=== PATIENT | male | born 1955 | race Caucasian/White ===

== ENCOUNTER 2024-01-18 14:53 | Outpatient (AMB) | payer BC, SELFPAY ==
--- NOTE | 2024-01-18 14:56 | MHC.OFFVIS ---
Vital Signs 01/18/24 14:59 Height 5 ft 9 in Weight 217 lb 13.067 oz BMI 32.2 BP 126/72 Blood Pressure Location Rt brachial Position Sitting Pulse 76 Pulse Source Pulse Oximeter Intake Visit Reasons: Pre DM-CONFIRMED Intake Note: Patient presents today for Pre Diabetes, last A1c was on 12/15/2023 resulting 6.0%. Referred by PCP. Glucose 85 mg/dl. Joint Terminal Attack Controller Required: No Accompanied by: Self / Same As Patient Allergies No Known Allergies Allergy (Verified 01/18/24 15:00) Medication List - Last Reconciled 01/18/24 by Madison Inman PA-C amlodipine 10 mg PO DAILY cholecalciferol (vitamin D3) 25 mcg PO DAILY HPI HPI Pre DM-CONFIRMED: Details: Patient is a 68-year-old male who presents today to establish care with endocrinology for prediabetes. He has a significant past medical history hypertension, hyperlipidemia , obesity and recent diagnosis of prediabetes. Endo: In December had his labs checked and his A1c was 6. Having prediabetes has been stressful so he has increased his exercise (walking 6 miles a day), cut out carbs. Reports losing 15 lbs and is motivated to not develop DM. CV: Denies any known history of CAD. Blood pressure in the office is 126/72. He is currently on amlodipine. Cholesterol is controlled with diet. [facility] Medical History (Updated 01/18/24 @ 15:14 by Madison Inman PA-C) Class 1 obesity with serious comorbidity and body mass index (BMI) of 32.0 to 32.9 in adult Hyperlipidemia HTN (hypertension), benign Prediabetes Surgical History (Updated 01/18/24 @ 15:01 by ANDRES Miller) Hx of appendectomy Family History Mother No known health problems Father Congestive heart failure Social History Alcohol intake: current Patient Tobacco Use Status: Never used Tobacco Physical Exam Vital Signs: BMI result Body Mass Index 32.2 Const Orientation/consciousness: patient oriented x3 Neck Neck: Yes no lymphadenopathy Thyroid: Thyroid normal Carotids: no bruits Resp Auscultation: clear to auscultation bilaterally Cardio Rate: regular rate Rhythm: regular rhythm Heart sounds: S1 normal heart sound present and S2 normal heart sound present Peripheral pulses: dorsalis pedis present Neuro General: patient oriented x3, gait normal and no focal motor deficits Extrem Other: Monofilament sensation intact bilaterally. Vibratory sensation intact bilaterally. Skin intact. General: Yes normal to inspection Results Reviewed Results Reviewed: CMP from 12/06/2023 WNL Lipids from 12/06/2023: Triglycerides 138, total cholesterol 183, HDL 54, VLDL 24, LDL 105 Assessment & Plan Assessment & Plan (1) Prediabetes: Code(s): R73.03 - Prediabetes Category: Medical Plan: a1c is 6.0. Declines further diabetic education today. Will follow up in 3 months. (2) HTN (hypertension), benign: Code(s): I10 - Essential (primary) hypertension Category: Medical Plan: bp wnl. continue norvasc. (3) Class 1 obesity with serious comorbidity and body mass index (BMI) of 32.0 to 32.9 in adult: Code(s): E66.9 - Obesity, unspecified; Z68.32 - Body mass index [BMI] 32.0-32.9, adult Category: Medical Qualifiers: Obesity type: due to excess calories Qualified Code(s): E66.09 - Other obesity due to excess calories; Z68.32 - Body mass index [BMI] 32.0-32.9, adult Plan: has a goal to be 195 lbs. He is going to increase exercise, reduce carbs and etoh. Orders: Orders Comprehensive [place]. Panel Fast Today E66.09 - Other obesity due to excess calories, I10 - Essential (primary) hypertension, R73.03 - Prediabetes, Z68.32 - Body mass index [BMI] 32.0-32.9, adult Hemoglobin A1c Today E66.09 - Other obesity due to excess calories, I10 - Essential (primary) hypertension, R73.03 - Prediabetes, Z68.32 - Body mass index [BMI] 32.0-32.9, adult Coding Level of Care Code New Pt Level 4 (04555) Diagnoses Prediabetes R73.03 HTN (hypertension), benign I10 Class 1 obesity due to excess calories with serious comorbidity and body mass index (BMI) of 32.0 to 32.9 in adult E66.09; Z68.32 Obesity type: due to excess calories
[2024-01-18 14:59] VITALS: BP 126/72; PULSE 76; BMI 32.2
[2024-01-18 15:15] LABS: Glucose, Whole Blood 85 mg/dL (60-115)
== END 2024-01-18 15:45 | disposition home or self-care (01) ==
PROVIDERS: PCP Internal Medicine; Visit Provider Physician Assistant
DX: R73.03 Prediabetes (principal); I10 Essential (primary) hypertension; E66.09 Other obesity due to excess calories; Z68.32 Body mass index [BMI] 32.0-32.9, adult
CPT/HCPCS: 99204

== ENCOUNTER → 2024-01-18 14:53 | Outpatient (BNVA) | payer BC, SELFPAY | PROVIDERS: PCP Internal Medicine; Visit Provider Physician Assistant | DX: R73.03 Prediabetes (principal); I10 Essential (primary) hypertension; E66.09 Other obesity due to excess calories; Z68.32 Body mass index [BMI] 32.0-32.9, adult; Z79.899 Other long term (current) drug therapy | CPT/HCPCS: 82947 ==

== ENCOUNTER 2024-04-15 07:32 | Outpatient (REF) | payer BC, SELFPAY ==
[2024-04-15 08:05] LABS: Estimated Average Glucose 105 mg/dL; Hemoglobin A1c % 5.3 % (<6.0)
[2024-04-15 08:16] LABS: Alanine Aminotransferase 16 U/L (0-40); Albumin Level 4.3 g/dL (3.5-5.0); Alkaline Phosphatase 85 U/L (39-117); Anion Gap 12 (12-20); Aspartate Amino Transferase 19 U/L (5-37); Bilirubin Total 0.7 mg/dL (0.0-1.0); Blood Urea Nitrogen 18 mg/dL (9-16); Calcium 9.8 mg/dL (8.4-10.2); Carbon Dioxide 27 mmol/L (22-29); Chloride 106 mmol/L (96-108); Estimated Glomerular Filt Rate > 60; Glucose Fasting 104 mg/dL (60-99); Potassium 4.6 mmol/L (3.3-5.1); Sodium 140 mmol/L (135-145); Total Protein 7.3 g/dL (6.5-8.0)
== END 2024-04-15 07:33 | disposition home or self-care (01) ==
LOC: HO.LAB 07:32
PROVIDERS: PCP Internal Medicine; Visit Provider Physician Assistant
DX: I10 Essential (primary) hypertension (principal); R73.03 Prediabetes; E66.09 Other obesity due to excess calories; Z68.32 Body mass index [BMI] 32.0-32.9, adult
CPT/HCPCS: 36415; 80053; 83036

== ENCOUNTER 2024-04-21 09:42 | Outpatient (AMB) | payer BC, SELFPAY ==
--- NOTE | 2024-04-21 09:56 | A.OFFVIS_ITS ---
Vital Signs 04/21/24 10:00 Height 5 ft 9 in Weight 202 lb 13.204 oz BMI 29.9 BP 122/78 Blood Pressure Location Rt brachial Position Sitting Pulse 60 Pulse Source Pulse Oximeter Intake Visit Reasons: Pre DM/LVM Intake Note: Patient presents today for D2OK follow up visit. Last Diabetic Eye exam: a year ago Last Podiatry Visit: Does not see a Supervisor In [employer] Testing Most recent HgA1c: 5.3%, 04/15/2024 Random Glucose: 100 mg/dL, Today Supervisor Coal Handling Required: No Accompanied by: Self / Same As Patient Allergies No Known Allergies Allergy (Verified 01/18/24 15:00) Medication List - Last Reconciled 04/21/24 by Madison Inman PA-C amlodipine 2.5 mg PO DAILY cholecalciferol (vitamin D3) 25 mcg PO DAILY HPI HPI Pre DM/LVM: Details: Patient is a 68-year-old male who presents today for a follow up for prediabetes. He has a significant past medical history hypertension, hyperlipidemia , obesity and recent diagnosis of prediabetes. Endo: In December had his labs checked and his A1c was 6. His A1c now is 5.3. He has increased his exercise (walking 6 miles a day), cut out carbs. Reports losing 20 lbs and is motivated to not develop DM. CV: Denies any known history of CAD. Blood pressure in the office is 122/72. He is currently on amlodipine 2.5mg. Cholesterol is controlled with diet. [facility] Medical History (Updated 04/21/24 @ 10:21 by Madison Inman PA-C) Class 1 obesity with serious comorbidity and body mass index (BMI) of 32.0 to 32.9 in adult Hyperlipidemia HTN (hypertension), benign Prediabetes Surgical History Hx of appendectomy Family History Mother No known health problems Father Congestive heart failure Social History Alcohol intake: current Patient Tobacco Use Status: Never used Tobacco Physical Exam Vital Signs: Last Vital Signs Pulse 60 04/21/24 10:00 BP 122/78 04/21/24 10:00 BMI result Body Mass Index 29.9 Const Orientation/consciousness: patient oriented x3 Neck Neck: Yes no lymphadenopathy Thyroid: Thyroid normal Carotids: no bruits Resp Auscultation: clear to auscultation bilaterally Cardio Rate: regular rate Rhythm: regular rhythm Heart sounds: S1 normal heart sound present and S2 normal heart sound present Peripheral pulses: dorsalis pedis present Neuro General: patient oriented x3, gait normal and no focal motor deficits Extrem Other: Monofilament sensation intact bilaterally. Vibratory sensation intact bi laterally. Skin intact. General: Yes normal to inspection Results Reviewed Results Reviewed: Laboratory Tests 04/15/24 07:45 Sodium 140 Potassium 4.6 Chloride 106 Carbon Dioxide 27 Anion Gap 12 BUN 18 H Creatinine 1.02 Estimated GFR > 60 Fasting Glucose 104 H Estimat Average Glucose 105 Hemoglobin A1c % 5.3 Assessment & Plan Assessment & Plan (1) HTN (hypertension), benign: Code(s): I10 - Essential (primary) hypertension Category: Medical Plan: WNL. Continue current regimen (2) Impaired fasting glucose: Code(s): R73.01 - Impaired fasting glucose Category: Medical Plan: A1c normal. Advised patient that he does not need to follow with endocrinology now and can be monitored by PCP. Congratulated him on his weight loss and lifestyle modifications. Advised to follow up should he develop diabetes. Patient understands and agrees with this plan. Coding Level of Care Code Est Pt Level 4 (46630) Diagnoses HTN (hypertension), benign I10 Impaired fasting glucose R73.01
[2024-04-21 10:00] VITALS: BP 122/78; PULSE 60; BMI 29.9
[2024-04-21 10:08] LABS: Glucose, Whole Blood 100 mg/dL (60-115)
== END 2024-04-21 10:20 | disposition home or self-care (01) ==
PROVIDERS: PCP Internal Medicine; Visit Provider Physician Assistant
DX: I10 Essential (primary) hypertension (principal); R73.01 Impaired fasting glucose
CPT/HCPCS: 99214

== ENCOUNTER → 2024-04-21 09:42 | Outpatient (BNVA) | payer BC, SELFPAY | PROVIDERS: PCP Internal Medicine; Visit Provider Physician Assistant | DX: R73.01 Impaired fasting glucose (principal); I10 Essential (primary) hypertension; Z79.899 Other long term (current) drug therapy | CPT/HCPCS: 82947 ==

== ENCOUNTER 2025-07-27 07:44 | Outpatient (AMB) | payer MEDICARE, BC, SELFPAY ==
--- OUTSIDE RECORDS SUMMARY | 2025-07-27 07:47 | XMS_ITS | Clinical Summary ---
Author Organization [facility] Address [address] [place] [address] Care Team Providers Care Manager Mechanical Name Role Phone Dameon Helm MD Primary Care Provider [phone] Medical History Medical History Date Comments Anxiety DX:Anxiety Family History Medical History Relation Name Comments Hypertension Brother Heart failure Father Prostate cancer Father Heart failure Mother at 93 Abdominal Aortic Anuerysm (AAA) Neg Hx Breast cancer Neg Hx Colon cancer Neg Hx Colon polyps Neg Hx Melanoma Neg Hx Relation Name Status Comments Brother Father Mother Social History Tobacco Use Types Packs/Day Years Used Date Smoking Tobacco: Never Smokeless Tobacco: Never Alcohol Use Standard Drinks/Week Comments Yes 0 (1 standard drink = 0.6 oz pur e alcohol) Sex and Gender Information Value Date Recorded Sex Assigned at Not on file Legal Sex Male 7:19 AM EST Gender Identity Not on file Sexual Orientation Not on file Last Filed Vital Signs Vital Sign Reading Time Taken Comments Blood Pressure 138/86 10/30/2022 12:03 PM EDT Pulse 74 10/30/2022 9:47 AM EDT Temperature - - Respiratory Rate - - Oxygen Saturation - - Inhaled Oxygen Concentration - - Weight 103 kg (228 lb) 10/30/2022 9:47 AM EDT Height - - Body Mass Index - - Plan of Treatment Health Maintenance Due Date Last Done Comments Colorectal Cancer Screening: Colonoscopy 1955 DTaP,Tdap,and Td Vaccines (1 - Tdap) 12/19/1974 Pneumococcal Vaccine: 50+ Ye ars (1 of 1 - PCV) 12/19/2005 Zoster Vaccines (1 of 2) 12/19/2005 Abdominal Aortic Aneurysm (A AA) Screen 07/09/2022 Cholesterol Screening (Lipid Panel) 07/09/2022 Falls Risk Assessment 07/09/2022 Hepatitis C Screening 07/09/2022 Social Influencers of Health Screening 07/09/2022 Hypertension/CHF/CAD Annual BMP Blood Test 07/16/2022 Depression Screening 08/06/2024 COVID-19 Vaccine (1 - 2024-2 6 season) 2025 Influenza Vaccine (#1) 2025 RSV Immunization Adult Patie nts (1 - 1-dose 75+ series) 12/19/2030 HIB Vaccines Aged Out No longer eligi ble based on patient's age to complete this topic HPV Vaccines Aged Out No longer eligi ble based on patient's age to complete this topic Hepatitis A Vaccines Aged Out No long er eligible based on patient's age to complete this topic Hepatitis B Vaccines Aged Out No long er eligible based on patient's age to complete this topic IPV Vaccines Aged Out No longer eligi ble based on patient's age to complete this topic MMR Vaccines Aged Out No longer eligi ble based on patient's age to complete this topic Meningococcal ACWY Vaccine Aged Out N o longer eligible based on patient's age to complete this topic Meningococcal B Vaccine Aged Out No l onger eligible based on patient's age to complete this topic RSV Immunization Patients Un chandana 20 months Aged Out No longer eligible b ased on patient's age to complete this topic Varicella Vaccines Aged Out No longer eligible based on patient's age to complete this topic Care Teams Manager Mechanical Relationship Specialty Start Date End Date Dameon Helm MD [address] [place] [address] PCP - General Internal Medicine 06/09/21
--- NOTE | 2025-07-27 08:00 | A.OFFVIS_ITS ---
Vital Signs 07/27/25 08:01 Height 5 ft 9 in Weight 208 lb BMI 30.7 BP 146/82 H Blood Pressure Location Lt brachial Position Sitting Pulse 67 Pulse Source Pulse Oximeter Pulse Oximetry (%) 96 Oxygen Delivery Method Room Air Intake Visit Reasons: Pre DM Intake Note: Patient present today for Pre-Diabetes Mellitus Last Diabetic eye exam: Last exam was approx 2 years ago Last Podiatry Visit: Doesn't have one Random Glucose: 135 mg/dl HgA1C: 5.6% Photographer Apprentice Lithographic Required: No Accompanied by: Self / Same As Patient Allergies No Known Allergies Allergy (Verified 07/27/25 08:07) HPI HPI Pre DM: Details: Patient is a 69-year-old male who presents today for a follow up for prediabetes. He has a significant past medical history hypertension, hyperlipidemia , obesity and diagnosis of prediabetes. Endo: In 2023 had his labs checked and his A1c was 6. His A1c now is 5.6. He has noticed some of his blood sugars are elevated fasting in the morning. He states that they range from the 80s to 130. On average they seem to be around 100. He walks 5 miles or so a day, cut out carbs. He is worried about developing diabetes. CV: Denies any known history of CAD. Blood pressure in the office is 142/82. He is currently on amlodipine 2.5mg. Cholesterol is controlled with diet. [facility] Medical History (Updated 04/21/24 @ 10:21 by Madison Inman PA-C) Class 1 obesity with serious comorbidity and body mass index (BMI) of 32.0 to 32.9 in adult Hyperlipidemia HTN (hypertension), benign Prediabetes Surgical History Hx of appendectomy Family History Mother No known health problems Father Congestive heart failure Social History Alcohol intake: current Patient Tobacco Use Status: Never used Tobacco Physical Exam Vital Signs: Last Vital Signs Pulse 67 07/27/25 08:01 BP 146/82 H 07/27/25 08:01 Pulse Ox 96 07/27/25 08:01 Oxygen Delivery Method Room Air 07/27/25 08:01 BMI result Body Mass Index 30.7 Const Orientation/consciousness: patient oriented x3 HEENT Ears: hearing grossly normal bilaterally Neck Thyroid: Thyroid normal Lymphatic: no lymphadenopathy noted Resp Auscultation: clear to auscultation bilaterally Cardio Rate: regular rate Rhythm: regular rhythm Heart sounds: S1 normal heart sound present and S2 normal heart sound present Skin General skin exam: no rashes or lesions noted Neuro General: patient oriented x3, gait normal and no focal motor deficits Results AMB Hemoglobin A1c AMB Hemoglobin A1c 5.6 % Last Edit by ANDRES Olivera on 07/27/25 08:20 Results Reviewed Results Reviewed: Laboratory Last Values Glucose (Clinic) 135 mg/dL (60-115) H 07/27/25 08:10 Assessment & Plan Assessment & Plan (1) Impaired fasting glucose: Code(s): R73.01 - Impaired fasting glucose Category: Medical Plan: A1c today is 5.6. We again reviewed signs and symptoms of diabetes. Continue healthy lifestyle and monitoring blood sugars as needed. He may follow up with his PCP. Return if A1c changes or any concerns with blood sugars (2) HTN (hypertension), benign: Code(s): I10 - Essential (primary) hypertension Category: Medical Plan: Continue amlodipine as prescribed by PCP Orders: Orders AMB Hemoglobin A1c Today R73.03 - Prediabetes, Z13.9 - Encounter for screening, unspecified Coding Level of Care Code Est Pt Level 4 (72988) Add On Problem Visit Only Diagnoses Impaired fasting glucose R73.01 HTN (hypertension), benign I10
[2025-07-27 08:01] VITALS: BP 146/82; PULSE 67; O2SAT 96; BMI 30.7
[2025-07-27 08:13] LABS: Glucose, Whole Blood 135 mg/dL (60-115)
== END 2025-07-27 08:35 | disposition home or self-care (01) ==
PROVIDERS: PCP Internal Medicine; Visit Provider Physician Assistant
DX: Z13.9 Encounter for screening, unspecified (principal); R73.03 Prediabetes; R73.01 Impaired fasting glucose; I10 Essential (primary) hypertension

== ENCOUNTER → 2025-07-27 07:44 | Outpatient (BNVA) | payer MEDICARE, BC, SELFPAY | PROVIDERS: PCP Internal Medicine; Visit Provider Physician Assistant | DX: I10 Essential (primary) hypertension (principal); R73.03 Prediabetes; R73.01 Impaired fasting glucose | CPT/HCPCS: 82947; 83036; 99212 ==